=== PATIENT | female | born 1960 | race Caucasian/White ===

== ENCOUNTER → 2023-10-28 11:01 | Outpatient (REF) | payer OTHER, SELFPAY | LOC: HWRAD 11:01 | PROVIDERS: ATTENDING PHYSICIAN Internal Medicine Cardiovascular Disease; FAMILY PHYSICIAN Family Medicine | DX: I25.10 Atherosclerotic heart disease of native coronary artery without angina pectoris (principal); R06.09 Other forms of dyspnea | CPT/HCPCS: 71046 ==

== ENCOUNTER → 2023-11-10 09:08 | Outpatient (REF) | payer OTHER, SELFPAY | LOC: HWRCS 09:08 | PROVIDERS: ATTENDING PHYSICIAN Internal Medicine Cardiovascular Disease; FAMILY PHYSICIAN Nurse Practitioner Family | DX: I25.10 Atherosclerotic heart disease of native coronary artery without angina pectoris (principal); R06.09 Other forms of dyspnea; E04.9 Nontoxic goiter, unspecified | CPT/HCPCS: 93306 ==

== ENCOUNTER → 2023-11-11 08:46 | Outpatient (REF) | payer OTHER, SELFPAY | LOC: HWRAD 08:46 | PROVIDERS: ATTENDING PHYSICIAN Family Medicine | DX: R93.89 Abnormal findings on diagnostic imaging of other specified body structures (principal) | CPT/HCPCS: 71270; Q9967 ==

== ENCOUNTER → 2023-11-16 07:40 | Outpatient (REF) | payer OTHER, SELFPAY | LOC: DHCBC/DCA 07:40 | PROVIDERS: ATTENDING PHYSICIAN Internal Medicine Cardiovascular Disease; FAMILY PHYSICIAN Family Medicine | DX: I25.10 Atherosclerotic heart disease of native coronary artery without angina pectoris (principal); R06.09 Other forms of dyspnea; E04.9 Nontoxic goiter, unspecified | CPT/HCPCS: 78452; 93017; A9500 ==